=== PATIENT | female | born 1990 | race Two or more races ===

== ENCOUNTER 2018-08-05 18:44 | Emergency (ER) | payer MEDICAID, SELFPAY ==
[~2018-08-05] VITALS: Ht 162.6 cm; Wt 113.4 kg
[~2018-08-05 18:44] MED LIST: ADVIL200 M2 ORAL; CORTISPORIN EAR10 ML OTIC; NORCO 5-325 TA1 EACH ORAL
[2018-08-05 19:00] VITALS: BP 133/78
[2018-08-05] MEDS ORDERED: Methocarbamol 500mg tab ORAL ONE (19:00)
[2018-08-05] MEDS ORDERED: ROBAXIN500 MG PO (19:07)
[2018-08-05] MEDS ORDERED: TYLENOL EXTRA500 MG ORAL (19:07)
[2018-08-05] MEDS ORDERED: LIDOCAINE700 M1 TP (19:07)
--- NOTE | 2018-08-05 19:07 | Emergency Room Report ---
History of Present Illness General Chief Complaint: Back Pain-No Injury Source: Patient Present Illness HPI 28-year-old female patient presents ER complaining of low back pain 1 day. Reports pain is worse on the left side. 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 Reports pain worse with movement. Reports history of similar symptoms in the past, states previously resolved with rest and NSAIDs. States was able to go to sleep but pain symptoms did not resolve this morning so she decided to come to the ER at urging of family members. Denies history of back surgery, cancer, IV drug use. Denies abdominal pain. Denies pain radiating down the legs. Denies bowel or bladder incontinence. Denies diarrhea, constipation. Reports last bowel movement today , normal. Denies fever, chest pain, shortness of breath. Denies dysuria, hematuria, vaginal discharge. denies acute injury or trauma. Allergies: Coded Allergies: No Known Allergies (Unverified , 06/12/14) Patient History Past Medical History: see triage record Last Menstrual Period: 07/18/18 Now: No : 3 Para: 1 Reviewed Nursing Documentation: PMH: Agreed; PSxH: Agreed Nursing Documentation-PMH Past Medical History: No Stated History Review of Systems All Other Systems: negative except mentioned in HPI Physical Exam Vital Signs Date Time Temp Pulse Resp B/P (MAP) Pulse Ox O2 Delivery O2 Flow Rate FiO2 08/05/18 18:48 98.6 88 16 133/78 96 Room Air Sp02 EP Interpretation: reviewed, normal General Appearance: well appearing, no apparent distress, alert, GCS 15, non- toxic Head: normocephalic, atraumatic Eyes: bilateral eye normal inspection, bilateral eye PERRL ENT: hearing grossly normal, normal pharynx, no angioedema, normal voice, uvula midline, moist mucus membranes Neck: full range of motion Respiratory: lungs clear, normal breath sounds, no rhonchi, no respiratory distress, no accessory muscle use, no wheezing, speaking full sentences Cardiovascular #1: regular rate, rhythm, no edema Gastrointestinal: non tender, soft, no mass, non-distended, no guarding, no rebound Genitourinary: no CVA tenderness Musculoskeletal: back normal, digits/nails normal, gait/station normal, normal range of motion, non-tender, no calf tenderness, Cookie's Sign negative Neurologic: alert, oriented x3, responsive, motor strength/tone normal, SLR negative, sensory intact, cerebellar normal, normal gait, speech normal Psychiatric: mood/affect normal Skin: no rash Medical Decision Making PA Attestation Dr. Souza is my supervising Physician whom patient management has been discussed with. Diagnostic Impression: Primary Impression: Lumbago ER Course Pt presents to ED c/o back pain. DDX considered but are not limited to sprain, strain, cauda equina, epidural abscess, AAA, spinal cord compression, kidney stones, disc herniation, muscle spasm, UTI. Low suspicion for cauda equina, no bowel or bladder incontinence or retention. No fever, nontoxic appearing, no radiation of pain, low suspicion for epidural mass. No abdominal pain, no blood pressure elevation, nontoxic appearing, low suspicion for AAA. VITAL SIGNS are WNL, patient is afebrile ER COURSE: Pain medication, muscle relaxant and lidocaine patch provided. no acute injury or trauma, no radiation of pain, no tenderness to palpation, does not require imaging at this time. Likely muscle spasm vs strain. Follow-up with primary care provider to discuss MRI imaging and referral to physical therapy, pain management. Advised on rest, ice, heat. Followup with pain management and/or PT. Request referral from PCP. Followup with PCP for further MRI and/or CT imaging as needed.ER precautions given. Work note provided. ER precautions given. DISCHARGE: -Rx provided for ibuprofen -Rx provided for Lidocaine patch -Rx provided for Robaxin. SE may cause drowsiness, do not take prior to drinking , driving, or operating [employer] machinery. At this time pt. is stable for d/c to home. At this time patient is resting comfortably, in no acute distress, nontoxic appearing, smiling and talking without difficulty. Will provide printed patient care instructions, and any necessary prescriptions. Patient instructed to follow with primary care provider for further treatment and referral as needed. Care plan and follow up instructions have been discussed with the patient prior to discharge. Patient reports understanding and agreement to treatment plan. Patient questions asked and answered. ER precautions given, patient instructed to return to ER immediately for any new or worsening of symptoms. - Please note that this Emergency Department Report was dictated using [employer] maker technology software, occasionally this can lead to erroneous entry secondary to interpretation by the dictation equipment. Last Vital Signs Date Time Temp Pulse Resp B/P (MAP) Pulse Ox O2 Delivery O2 Flow Rate FiO2 08/05/18 18:48 98.6 88 16 133/78 96 Room Air Status: improved Disposition: HOME, SELF-CARE Condition: Stable Scripts Acetaminophen* (TYLENOL EXTRA STRENGTH*) 500 Mg Tablet 500 MG ORAL Q8H PRN for Prn Headache/Temp > 101, #30 TAB 0 Refills Prov: Scott Randhawa 08/05/18 Methocarbamol* (ROBAXIN*) 500 Mg Tablet 500 MG PO TID, #21 TAB 0 Refills Prov: Scott Randhawa 08/05/18 Lidocaine (Lidocaine) 1 Each Adh..patch 5 % TP DAILY for 7 Days, #7 PATCH Prov: Scott Randhawa 08/05/18 Patient Instructions: Back Pain, Adult, Low Back Strain With Rehab-SportsMed Additional Instructions: Patient instructed to follow up with primary care provider 3-5 and discuss further referral and imaging at that time. Discuss referral for MRI imaging and referral to physical therapy/pain management. Patient instructed on rest, ice and heat. Do not take muscle relaxant prior to drinking, driving, or operating heavy machinery. Take medications as directed. Patient questions asked and answered. ER precautions given, patient instructed to return to ER immediately for any new or worsening of symptoms. [facility] [address] [facility], [id number] [email or web address] Scott Randhawa Aug 05, 2018 19:08
[2018-08-05 19:23] VITALS: BP 133/78
== END 2018-08-05 19:23 | disposition home or self-care (01) ==
LOC: EMR 19:06
DX: M54.5 Low back pain (principal)
CPT/HCPCS: 99283

== ENCOUNTER 2019-06-26 20:12 | Emergency (ER) | payer MEDICAID ==
[~2019-06-26] VITALS: Ht 162.6 cm; Wt 113.4 kg
[~2019-06-26 20:12] MED LIST changes: +LIDOCAINE700 M1 TP; +ROBAXIN500 MG PO; +TYLENOL EXTRA500 MG ORAL
--- NOTE | 2019-06-26 20:24 | NUR ---
ED Nurse Note: Patient in OBGYN reports frequency of urination for 1 day. No pain. Urine sample requested and obtained.
[2019-06-26 20:33] VITALS: BP 118/79
--- NOTE | 2019-06-26 20:34 | NUR ---
ED Nurse Note: PATIENT PROVIDED URINE SAMPLE SAME SENT TO THE LAB
[2019-06-26 20:52] LABS: APPEARANCE,URINE VERY CLOUDY; BILIRUBIN, URINE NEGATIVE (NEGATIVE); GLUCOSE, URINE (UA) NEGATIVE (NEGATIVE); KETONES,URINE NEGATIVE (NEGATIVE); LEUKOCYTE ESTERASE ,URINE 3+ (NEGATIVE); NITRITE,URINE NEGATIVE (NEGATIVE); PH,URINE 6.5 (4.5-8.0); PROTEIN,URINE 3+ (NEGATIVE); UROBILINOGEN,URINE NORMAL MG/DL (0.0-1.0)
[2019-06-26 20:55] LABS: COLOR,URINE YELLOW
--- NOTE | 2019-06-26 21:23 | Emergency Room Report ---
History of Present Illness General Chief Complaint: Female Urogenital Problems Source: Patient Present Illness HPI This patient states she has had 1 day of urinary frequency and slight dysuria. She denies fever chills. She denies nausea or vomiting. She denies abdominal pain. She denies abnormal vaginal discharge. She has no other complaints. Allergies: Coded Allergies: No Known Allergies (Unverified , 06/12/14) Patient History Past Medical History: none Past Surgical History: none Social History: Denies: smoking, alcohol use, drug use Last Menstrual Period: 06/19/19 Now: No : 1 Para: 1 Reviewed Nursing Documentation: PMH: Agreed; PSxH: Agreed Nursing Documentation-PMH Past Medical History: No Stated History Review of Systems All Other Systems: negative except mentioned in HPI Physical Exam Vital Signs Date Time Temp Pulse Resp B/P (MAP) Pulse Ox O2 Delivery O2 Flow Rate FiO2 06/26/19 20:15 98.1 89 17 136/82 (100) 98 Room Air Sp02 EP Interpretation: reviewed, normal General Appearance: no apparent distress, alert, GCS 15, non-toxic Head: normocephalic, atraumatic Eyes: bilateral eye normal inspection, bilateral eye PERRL ENT: hearing grossly normal, normal pharynx, no angioedema, normal voice Neck: normal inspection Respiratory: chest non-tender, lungs clear, normal breath sounds, no respiratory distress, no retraction, no accessory muscle use, speaking full sentences Cardiovascular #1: regular rate, rhythm, no edema Gastrointestinal: normal bowel sounds, non tender, soft, non-distended, no guarding, no rebound Rectal: deferred Musculoskeletal: back normal, gait/station normal, normal range of motion Neurologic: alert, oriented x3, responsive, motor strength/tone normal, sensory intact, speech normal Psychiatric: judgement/insight normal, memory normal, mood/affect normal, no suicidal/homicidal ideation Skin: no rash, normal color Medical Decision Making Diagnostic Impression: Primary Impression: UTI (urinary tract infection) ER Course Patient has a clinical presentation consistent with simple UTI. There are no systemic symptoms to include fever, chills, sweating, nausea or vomiting that would make me concerned for pyelonephritis. Overall this patient's evaluation is benign. Patient is stable for outpatient oral antibiotic therapy. The patient was given return precautions and followup instructions. Laboratory Tests Test 06/26/19 20:26 Urine Color Yellow Urine Appearance Very cloudy Urine pH 6.5 (4.5-8.0) Urine Specific [place] 1.010 (1.005-1.035) Urine Protein 3+ (NEGATIVE) H Urine Glucose (UA) Negative (NEGATIVE) Urine Ketones Negative (NEGATIVE) Urine Blood 4+ (NEGATIVE) H Urine Nitrite Negative (NEGATIVE) Urine Bilirubin Negative (NEGATIVE) Urine Urobilinogen Normal MG/DL (0.0-1.0) Urine Leukocyte Esterase 3+ (NEGATIVE) H Urine RBC 5-10 /HPF (0 - 2) H Urine WBC Tntc /HPF (0 - 2) H Urine Squamous Epithelial Cells Few /LPF (NONE/OCC) Urine Bacteria Few /HPF (NONE) Urine HCG, Qualitative Negative (NEGATIVE) Last Vital Signs Date Time Temp Pulse Resp B/P (MAP) Pulse Ox O2 Delivery O2 Flow Rate FiO2 06/26/19 20:33 98.5 81 16 118/79 98 Room Air Status: improved Disposition: HOME, SELF-CARE Condition: Improved Referrals: NON PHYSICIAN (PCP) Patient Instructions: Urinary Tract Infection Evita Foster DO Jun 26, 2019 21:23
[2019-06-26] MEDS ORDERED: NITROFURANTOIN100 M2 ORAL (21:24)
[2019-06-26] MEDS ORDERED: PHENAZOPYRIDIN200 MG ORAL (21:24)
[2019-06-26 21:40] VITALS: BP 118/79
--- NOTE | 2019-06-26 21:40 | NUR ---
ER DISCHARGE NOTE: Patient is cleared to be discharged per ERMD, pt is aox4, on room air, with stable vital signs. pt was given dc and prescription instructions, pt was able to verbalize understanding, pt id band removed. pt is able to ambulate with steady gait using crutches. pt took all belongings. Patient escorted home from waiting area by family member.
== END 2019-06-26 21:40 | disposition home or self-care (01) ==
LOC: EMR 20:29
DX: N39.0 Urinary tract infection, site not specified (principal)
CPT/HCPCS: 81003; 81025; 87086; Z7502; 99283